=== PATIENT | female | born 1950 | race Caucasian/White ===

== ENCOUNTER 2017-12-02 03:20 | Inpatient (IN) | payer MEDICARE, BC ==
[~2017-12-02] VITALS: Ht 160 cm; Wt 53.1 kg
[2017-12-02 07:00] VITALS: BP 144/92
[2017-12-02] MEDS ORDERED: DULO30CA51 PO (09:25)
[2017-12-02] MEDS ORDERED: ALPR0.5T PO (09:25)
[2017-12-02] MEDS ORDERED: TRAZ-214 PO (09:25)
[2017-12-02] MEDS ORDERED: ACETAMINOPHEN 325 MG TABLET PO PRN (09:30)
[2017-12-02] MEDS ORDERED: MAGNESIUM HYDROXIDE 30 ML UDC PO PRN (09:30)
[2017-12-02] MEDS ORDERED: MAG HYDROX/AL HYDROX/SIMETH 30 ML UDC PO PRN (09:30)
[2017-12-02] MEDS ORDERED: TEMAZEPAM 7.5 MG CAPSULE PO PRN (09:30)
[2017-12-02] MEDS: VENLAFAXINE XR 75 MG CAP.SR.24H PO SCH (15:45)
[2017-12-02 16:07] VITALS: BP 124/89
[2017-12-02 19:30] VITALS: BP 139/95
--- NOTE | 2017-12-02 19:30 | NUR ---
GPS ADMISSION NOTE, RECEIVED PATIENT FROM [facility]. PATIENT ARRIVED ON THIS UNIT AT 0916 VIA STRETCHER WITH 2 EMT ESCORTS. PATIENT ADMITTED ON A 5150 HOLD FOR DTS. PER HOLD PATIENT WAS A MISSING PERSON IN [facility] AND WAS FOUND BY POLICE IN [facility]. PATIENT STATED, " I DOVE TO [facility] TO WITH MY HORSES. I WAS GOING TO TAKE PILLS AND LIE DOWN WITH HER ANIMALS ". PATIENT UNABLE TO CONTRACT FOR SAFETY AT THIS TIME. THE 5150 WAS REVIEWED AND THE DOCUMENTATION IN THE 5150 HOLD APPEARS TO REFLECT THE PRESENTATION OF THE PATIENT. UPON FACE TO FACE ASSESSMENT PATIENT IS CURRENTLY LYING IN BED AWAKE, HAS NO S/S OR COMPLAINTS OF PAIN. PATIENT IS DISPLAYING NO S/S OF APPARENT DISTRESS. PATIENT BREATHING IS UNLABORED WITH EQUAL RISE AND FALL OF THE CHEST. PATIENT IS ALERT AND ORIENTATED X 3 ON ROOM AIR. PATIENT ASSISTED WITH TURING AND REPOSITIONING Q2HR AND PRN FOR COMFORT AND CIRCULATION. PATIENT HAS NO NEEDS AT THIS TIME. PATIENT IS NOTED TO BEING WITHDRAWN, DEPRESSED, DISHEVELED, DISORGANIZED, COOPERATIVE, AND NEEDS REDIRECTION. PATIENT DENIES SUICIDE IDEATIONS AND HOMICIDAL IDEATIONS AT THIS TIME. PATIENT IS UNDER THE PSYCHIATRIC CARE OF DR. CAMARENA AND THE MEDICAL CARE OF DR SAMPSON. PATIENT BELONGINGS WERE INVENTORIED AND CHECKED FOR CONTRABAND. ALL CONTRABAND REMOVED AND STORED IN PATIENT HALLWAY LOCKER. PATIENT ADVANCED DIRECTIVES PREFERENCE, IMMUNIZATIONS QUESTIONER, NECESSARY PAPERWORK, AND SKIN ASSESSMENT COMPLETED. PATIENT ORIENTATED TO ROOM, FLOOR, AND STAFF WITH ALL QUESTIONS ANSWERED. PATIENT EDUCATED ON THE USE OF THE CALL PARK. PATIENT BED SIDE RAILS ARE UP X 2 FOR SAFETY. PATIENT BED IS LOCKED, LOW AND I WILL CONTINUE TO MONITOR THIS PATIENT Q 15 MIN WITH THE HELP OF STAFF TO MAINTAIN SAFETY.
[2017-12-02] MEDS: TRAZODONE 50 MG TABLET PO SCH ×2 (21:35→22:23)
[2017-12-03 07:24] LABS: CHOLESTEROL 205 mg/dL (<200); HDL CHOLESTEROL 92 mg/dL (40-60); LDL 103 mg/dL (0-99); TRIGLYCERIDES 63 mg/dL (30-150)
[2017-12-03 07:27] LABS: ALBUMIN 3.5 g/dL (3.4-5.0); BILIRUBIN,TOTAL 0.6 mg/dL (0.2-1.0); CALCIUM, SERUM 9.3 mg/dL (8.5-10.1); CREATININE 0.6 mg/dL (0.6-1.3); POTASSIUM 3.2 mmol/L (3.5-5.1); TOTAL PROTEIN, SERUM 6.6 g/dL (6.4-8.2)
[2017-12-03 08:00] VITALS: BP 100/59
[2017-12-03] MEDS: VENLAFAXINE XR 75 MG CAP.SR.24H PO SCH ×2 (08:42→16:18)
[2017-12-03] MEDS ORDERED: ARIPIPRAZOLE 5 MG TABLET PO SCH (09:00)
[2017-12-03 09:29] LABS: BASOPHILS % (AUTO) 0.8 % (0.0-2.0); EOSINOPHILS % (AUTO) 2.9 % (0.0-6.0); HEMATOCRIT 40 % (33-45); HEMOGLOBIN 13.9 g/dL (11.5-14.8); LYMPHOCYTES # (AUTO) 1.6 /CMM (0.8-4.8); MEAN CORPUSCULAR HGB CONC 35 g/dl (31.0-36.0); MEAN CORPUSCULAR VOLUME 94 fL (82-100); MONOCYTES # (AUTO) 0.5 /CMM (0.1-1.30); MONOCYTES % (AUTO) 8.2 % (2.0-12.0); NEUTROPHILS % (AUTO) 63.1 % (43.0-81.0); PLATELET COUNT (AUTO) 244 /CMM (150-450); RDW COEFFICIENT OF VARIATION 13.4 (11.5-15.0); RED BLOOD CELL COUNT(AUTO) 4.29 MIL/uL (4.0-5.2); WHITE BLOOD COUNT (AUTO) 6.4 K/uL (4.3-11.0)
[2017-12-03] MEDS: POTASSIUM CHLORIDE 20 MEQ TAB.PRT.SR PO SCH ×2 (10:51→15:43)
[2017-12-03] MEDS: LORAZEPAM 0.5 MG TABLET PO PRN (15:46)
--- NOTE | 2017-12-03 15:46 | NUR ---
[id number]: GAVE ATIVAN 0.5 MG PO DUE TO SEVERE ANXIETY UPON PT REQUEST AND WILL CONTINUE TO MONITOR FOR EFFECTIVENESS OF MEDICATION
[2017-12-03 15:48] VITALS: BP 163/68
[2017-12-03] MEDS ORDERED: POTASSIUM CHLORIDE 20 MEQ TAB.PRT.SR PO SCH (16:00)
[2017-12-03] MEDS: BENZTROPINE MESYLATE (1 MG) 1 MG TABLET PO SCH (16:17)
[2017-12-03] MEDS: ARIPIPRAZOLE 5 MG TABLET PO SCH (16:17)
[2017-12-03 19:47] VITALS: BP 131/87
[2017-12-03] MEDS: TRAZODONE 50 MG TABLET PO SCH ×2 (21:32→22:42)
[2017-12-03] MEDS ORDERED: ATORVASTATIN 10 MG TABLET PO SCH (22:00)
[2017-12-04 08:00] VITALS: BP 115/79
[2017-12-04 08:15] LABS: CALCIUM, SERUM 9.2 mg/dL (8.5-10.1); CREATININE 0.6 mg/dL (0.6-1.3)
[2017-12-04 08:16] LABS: MAGNESIUM 1.7 mg/dL (1.8-2.4)
[2017-12-04 09:27] LABS: THYROID STIMULATING HORMONE 0.905 uIU/mL (0.358-3.74)
[2017-12-04] MEDS: ARIPIPRAZOLE 5 MG TABLET PO SCH (09:36)
[2017-12-04] MEDS: BENZTROPINE MESYLATE (1 MG) 1 MG TABLET PO SCH (09:36)
[2017-12-04] MEDS: VENLAFAXINE XR 75 MG CAP.SR.24H PO SCH (09:37)
[2017-12-04] MEDS: LORAZEPAM 0.5 MG TABLET PO PRN ×2 (09:47→16:00)
--- NOTE | 2017-12-04 11:34 | NUR ---
Initial Discharge Plan: Pt resides at [address] [facility] [address]; by her self. Pt reports that upon discharge she will be flying straight to [place] to be admitted into [facility] in [place]. Pt reports having family (i.e. sisters and brothers) fly out to [place], currently in order to support her through this transition. SW contacted pts sister, María Elena Barajas who attested to pts discharge plan. SW will follow up with pt, family and treatment team to ensure pt is safely and appropriately discharged.
--- NOTE | 2017-12-04 12:05 | NUR ---
SW spoke to pts sister, María Elena Barajas for discharge planning purposes . Per pts sister SW faxed clinical inquiry (face sheet, H&P, P&P, and med list) to [facility] in [facility] (fax# [phone]). In addition, Sw as informed by María Elena that in the event that pt was not admitted To [facility] upon arrival pt would wait for admittance at her brother's home (Noel Barajas, [address] [address]; [phone]). SW was also informed that pt would be "watched" by family in the event she had to wait while pending admission to hospital.
--- NOTE | 2017-12-04 12:11 | NUR ---
Discharge Plan: Patient will discharge home, [address] [place] [address] via private transportation at 4:00 pm. Pts sister María Elena Barajas, will pick pt up. Pt will then travel to [facility] in [place] (fax # [phone]) for admittance. Psychiatrist: Dr. Rex Garg, [address], [place] [address]; Firefighter: Dr. Rodo Bernardo; [address], [facility] [address]; . Pt was provided the following referrals to substance abuse facilities in [place]: [facility], [address] [place] [id number]; , [facility], [address] [place] [address]; and [facility] [address] [place] [address]; . Pt agreed to follow through with receiving help for her alcohol addiction.
[2017-12-04] MEDS ORDERED: MAGNESIUM OXIDE 400 MG TABLET PO ONE (14:00)
[2017-12-04 16:00] VITALS: BP 121/69
--- NOTE | 2017-12-04 16:30 | NUR ---
RECEIVED PT. ALERT AND ORIENTED X3.TAKES MEDS,MEDICATED X [address]MED [address] CAMARENA IN ORDERS FOR DISCHARGE TODAY.GIVEN ALL INSTRUCTIONS WELL RXS,INSTRUCTIONS WELL GIVEN TO PT,S SISTER.ALL BELONGINGS GIVEN TO PT. AND SIGNED FOR.PT. DENIES SUICIDE IDEATION AND HOMICIDAL IDEATION.DC,D TO CAR ESCORTED WALKING WITH SISTERS AND ELECTROCARDIOGRAPH TECHNICIAN.
== END 2017-12-04 16:15 | disposition home or self-care (01) | DRG 885 ==
LOC: GPS 08:15
PROVIDERS: ADMIT Psychiatry & Neurology Psychosomatic Medicine; ATTEND Nurse Practitioner Acute Care
DX: F33.2 Major depressive disorder, recurrent severe without psychotic features (principal); E87.8 Other disorders of electrolyte and fluid balance, not elsewhere classified; R45.851 Suicidal ideations; E78.5 Hyperlipidemia, unspecified; E87.6 Hypokalemia; F41.0 Panic disorder [episodic paroxysmal anxiety]; F10.20 Alcohol dependence, uncomplicated; F39 Unspecified mood [affective] disorder
CPT/HCPCS: 36415; 80048-TC; 80053-TC; 80061-TC; 82746; 83540-TC; 83735-TC; 84100-TC; 84443-TC; 85025-TC; 87081-TC

== ENCOUNTER 2019-09-20 15:52 | Inpatient (IN) | payer MEDICARE, BC ==
[~2019-09-20] VITALS: Ht 160 cm; Wt 55.3 kg
[~2019-09-20 15:52] MED LIST: ALPR0.5T PO; DULO30CA52 PO; TRAZ-257 PO
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
[2019-09-20 20:23] VITALS: BP 131/83
[2019-09-20] MEDS ORDERED: BLOOD SUGAR DIAGNOSTIC 1 EACH STRIP IN ONE (20:30)
[2019-09-20] MEDS ORDERED: ACETAMINOPHEN 325 MG TABLET PO PRN (20:30)
[2019-09-20] MEDS ORDERED: LORAZEPAM 0.5 MG TABLET PO PRN (20:30)
[2019-09-20] MEDS ORDERED: MAG HYDROX/AL HYDROX/SIMETH 30 ML UDC PO PRN (20:30)
[2019-09-20] MEDS ORDERED: MAGNESIUM HYDROXIDE 30 ML UDC PO PRN (20:30)
--- NOTE | 2019-09-20 20:30 | NUR ---
GPS RN NOTE: AGITATION PATIENT STATED," I AM HUNGRY." SNACKS & JUICE WAS OFFERED TO HER, WHILE EATING, PATIENT STARTED GAGGING ON SNACK & STARTED SPITTING IT OUT. VOMIT BAG WAS GIVEN TO THE PAT. UNDER SUPERVISION. NO VOMITING EPISODE NOTED. PT. STARTED LAUGHING & STATED," I AM DOING IT INTENTIONALLY." PT. ATTEMPTED TO THROW VOMIT BAG FULL OF CHEWED SNACK TOWARDS NURSE ASSISTING HER. NON REDIRECTABLE AT THIS TIME. PT. STATED, " I AM GOING TO GIVE YOU ALL HARD TIME TONIGHT & SHE LAUGHS." GAVE SPACE TO THE PATIENT TO RELAX & CALM DOWN UNDER CLOSE SUPERVISION.
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
[2019-09-20] MEDS ORDERED: QUET25TA PO (21:06)
[2019-09-20] MEDS ORDERED: THIAMINE PO (21:06)
[2019-09-20] MEDS ORDERED: FOLIC ACID PO (21:06)
[2019-09-20] MEDS ORDERED: LORA-259 PO (21:06)
[2019-09-20] MEDS ORDERED: ONDA4TAB5 PO (21:06)
[2019-09-20] MEDS ORDERED: MIRT15TA PO (21:06)
[2019-09-20] MEDS ORDERED: CHLO25CA22 PO (21:06)
[2019-09-20] MEDS ORDERED: FLUO20CA36 PO (21:06)
[2019-09-20] MEDS ORDERED: TRAM50TA2 PO (21:06)
--- NOTE | 2019-09-20 21:12 | NUR ---
REFUSED BLOOD SUGAR LEVEL CHECK PATIENT IS VERY ANXIOUS, RESTLESS, REFUSING CARE, MEDS, BLOOD SUGAR CHECK, STATED, I WILL REFUSE EVERYTHING, I WILL BE UP ALL NIGHT & MAKING LOUD NOISE & THAT'S WHAT MY PLAN IS FOR TONIGHT." DESPITE OF RISKS & BENEFITS EXPLANATIONS, PT. CONTINUED TO REFUSE BLOOD SUGAR LEVEL TO BE CHECKED.
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
--- NOTE | 2019-09-20 22:43 | NUR ---
GPS RN NOTE: BEHAVIORAL PATIENT IS UP IN A SUSANNE CHAIR, ON 1:1 SUPERVISION FOR BEHAVIORAL EPISODES. PT. IS VERY CONFUSED, DISORIENTED, DISORGANIZED, REFUSING TO TAKE ANY MEDICINES. KEEP CALLING FOR "VELIA", PARANOID, DELUSIONAL. INTERMITTENTLY SCREAMS," HELP, HELP, I AM BEING RAPED, VELIA YOU ARE DISGUSTING, YOU ARE A FOOL." NON REDIRACTABLE AT THIS TIME. HAVING BEHAVIORAL EPISODES INTERMITTENTLY SINCE ADMITTED TO GPS UNIT. WILL CONTINUE TO MONITOR CLOSELY FOR SAFETY & BEHAVIOR.
--- NOTE | 2019-09-20 23:02 | NUR ---
MD NOTIFIED CALLED DR GALLOWAY & REQUESTED TO HAVE MED RECON DONE. MD SAID HE WILL DO THE MED RECON. INFORMED MD THAT PATIENT HAS H/O OF ALCOHOL ABUSE BUT HER ALCOHOL SERUM LEVEL IS <5, PER [facility] LAB RESULTS & WAS ON LIBRIUM PER OUTPATIENT MEDICATION LIST SINCE PATIENT IS UNABLE TO PROVIDE ANY HISTORY DUE TO AGITATION, CONFUSION & PARANOID. MADE AWARE.
[2019-09-21] MEDS: TEMAZEPAM 7.5 MG CAPSULE PO PRN ×2 (00:50→21:44)
--- NOTE | 2019-09-21 00:54 | NUR ---
PRN RESTORIL GIVEN PATIENT IS UNABLE TO SLEEP, RESTLESS, ANXIOUS, OFFERED ATIVAN OR RESTORIL BUT PATIENT AGREED TO TAKE RESTORIL ONLY AT THIS TIME, REFUSED TO TAKE ATIVAN. PRN RESTORIL 7.5 MG 1 CAP PO GIVEN. WILL REASSESS FOR EFFECTIVENESS.
--- NOTE | 2019-09-21 03:10 | NUR ---
GPS RN NOTE RESTORIL WAS INEFFECTIVE FOR THE PATIENT, SHE IS UNABLE TO SLEEP, OFFERED ATIVAN BUT PATIENT CONTINUED TO REFUSE & WAS PARANOID/SUSPICIOUS. PATIENT WAS MAKING SEXUALLY INAPPROPRIATE COMMENTS TOWARDS STAFF, PT. CALMS DOWN, WHEN SPACE GIVEN. HAD INTERMITTENT BEHAVIORAL EPISODES DURING THE SHIFT. CONTINUED 1:1 SUPERVISION & KEPT REDIRECTING THE PT. WHILE HAVING BEHAVIORAL EPISODES & PT. WAS DISTRACTED AT TIMES.
--- NOTE | 2019-09-21 06:10 | NUR ---
GPS RN NOTE CHECKED WITH THE PATIENT THAT WHO SHE WOULD LIKE TO INFORM ABOUT HER ADMISSION AT [facility], [facility] UNIT. PATIENT STATED," CALL LEONARD, HE IS MY FIANCE & MY FRIEND." INFORMED PATIENT THAT CHARLES FETTING IS ALSO LISTED ON THE FACE SHEET BUT PATIENT STATED," DO NOT GET CHARLES INVOLVED, I DON'T WANT YOU TO CALL HIM." PHONE NUMBER PROVIDED FOR LEONARD IS NOT REACHABLE & PATIENT MADE AWARE BUT SHE STILL DOES NOT WANT CHARLES TO BE INFORMED. CHARGE NURSE MADE AWARE.
--- NOTE | 2019-09-21 06:16 | NUR ---
REFUSED AM LABS PATIENT REFUSED AM LABS DESPITE OF RISKS & BENEFITS EXPLANATIONS.
--- NOTE | 2019-09-21 07:22 | NUR ---
GPS RN NOTE REPORT GIVEN TO AM RN & INFORMED ABOUT PATIENT'S STATEMENT NOT TO CALL CHARLES, FETTING, ONLY CALL LEONARD BUT PHONE NUMBER FOR LEONARD IS NOT REACHABLE.
[2019-09-21 08:00] VITALS: BP 123/70
[2019-09-21] MEDS: MULTIVITAMINS,THERAGRAN 1 UDTAB TABLET PO SCH (08:12)
[2019-09-21] MEDS: THIAMINE HCL 100 MG TABLET PO SCH (08:12)
[2019-09-21] MEDS: LORAZEPAM 1 MG TABLET PO PRN ×2 (08:12→16:56)
[2019-09-21] MEDS: FOLIC ACID 1 MG TABLET PO SCH (08:12)
--- NOTE | 2019-09-21 08:12 | NUR ---
RN NOTE: PT IN HALLWAY SCREAMING AND PARANOID. MEDICATED WITH ATIVAN 2MG PO PRN
--- NOTE | 2019-09-21 12:47 | NUR ---
RN NOTE: PT C/O LOWER BACK PAIN. MEDICATED WITH TYLENOL 650MG PO
[2019-09-21 16:00] VITALS: BP 113/72
--- NOTE | 2019-09-21 16:59 | NUR ---
RN NOTE: PT AGITATED AND VERBALLY AGRESSIVE. MEDICATED WITH ATIVAN 2MG PO
[2019-09-21 21:07] VITALS: BP 99/65
[2019-09-22 08:00] VITALS: BP 112/68
[2019-09-22] MEDS: MULTIVITAMINS,THERAGRAN 1 UDTAB TABLET PO SCH (09:22)
[2019-09-22] MEDS: FOLIC ACID 1 MG TABLET PO SCH (09:22)
[2019-09-22] MEDS: THIAMINE HCL 100 MG TABLET PO SCH (09:22)
[2019-09-22] MEDS: LORAZEPAM 1 MG TABLET PO PRN (09:28)
--- NOTE | 2019-09-22 09:34 | NUR ---
GPS RN -NOTES NOTED PATIENT WITH SCREAMING AND YELLING DEMANDING ,NEEDY AND ARGUMENTATIVE WITH STAFF.ALL NEEDS ATTENDED. REDIRECTED AND OFFERED ATIVAN AND AGREED. ATIVAN 2MG P.O GIVEN PRN ORDER. WILL CONT. MONITORING FOR SAFETY AND BEHAVIOR.
--- NOTE | 2019-09-22 10:00 | NUR ---
GPS/RN-NOTES PATIENT IN THE DAY ROOM,CALM AT THIS TIME.NO ACUTE DISTRESS NOTED.
--- NOTE | 2019-09-22 11:31 | NUR ---
Family Contact: SW called the pts brother, Noel ([phone]), and left a voicemail that informed him that the pt is in the hospital and that the SW would like to discuss the pts treatment plan and discharge plan. Addendum: 09/22/19 at 1134 by GARCIA SANCHEZ Pt did not give permission to speak to the pts brother but due to the pt being on a hold for grave disability, the SW was able to make contact.
[2019-09-22] MEDS: ARIPIPRAZOLE 5 MG TABLET PO SCH ×2 (12:51→16:08)
--- NOTE | 2019-09-22 13:49 | NUR ---
Family Contact: Pts brother, Noel ([phone]), called the SW and stated that the pt was living at [facility] and he stated that he believes that the pt should be in a supervised facility and should not be living on her own.
--- NOTE | 2019-09-22 13:49 | NUR ---
Initial Discharge Plan: Pt currently resides at her condo where she lives alone located at [address] [place] [id number]; ([phone]). Per pt, she would like to return to her home. LAURA will work with the pt and the pts MD regarding appropriate discharge planning. SW will form a safe and proper discharge.
--- NOTE | 2019-09-22 14:20 | NUR ---
Substance Abuse Intervention: SW was unable to conduct the substance abuse intervention with the pt due to her aggressive behavior both physically and verbally. SW will make another attempt.
[2019-09-22 16:00] VITALS: BP 105/68
--- NOTE | 2019-09-22 16:32 | NUR ---
Group Note: SW encouraged pt to attend group therapy on 09/22/19 at 2pm discussing aggressive behaviors and triggers. Pt stated, "get the fuck away from me. Why would I do that? You cannot force me." Pt appeared to be verbally and physically aggressive and SW deemed her inappropriate for group.
[2019-09-22] MEDS: TEMAZEPAM 7.5 MG CAPSULE PO PRN (22:24)
[2019-09-23 08:00] VITALS: BP 95/68
[2019-09-23] MEDS: ARIPIPRAZOLE 5 MG TABLET PO SCH ×5 (09:00→21:14)
[2019-09-23] MEDS: FOLIC ACID 1 MG TABLET PO SCH (09:00)
[2019-09-23] MEDS: THIAMINE HCL 100 MG TABLET PO SCH (09:00)
[2019-09-23] MEDS: MULTIVITAMINS,THERAGRAN 1 UDTAB TABLET PO SCH (09:00)
--- NOTE | 2019-09-23 10:19 | NUR ---
WOUND CARE CONSULT; UNABLE TO TO WOUND CARE ASSESSMENT,PATIENT STRONGLY REFUSED TO BE TOUCH DESPITE EXPLANATIONS, PATIENT AGITATED AND NOT COOPERATIVE , CHARGE NURSE AND PRIMARY CARE NURSE NOTIFIED , WILL ATTEMPT WHEN PATIENT STATUS PERMITS
--- NOTE | 2019-09-23 14:21 | NUR ---
Group Note: SW invited the patient to attend group therapy on 09/23/2019 1 pm to discuss "what changes they would like to see in their lives as a result of their stay in [facility]". SW assessed the patient's ability to participate in therapy. The pt. is not appropriate for group therapy as the pt. is verbally aggressive.
[2019-09-23 16:00] VITALS: BP 116/95
[2019-09-23] MEDS: OXCARBAZEPINE 150 MG TABLET PO SCH (18:17)
[2019-09-23 20:56] VITALS: BP 112/74
[2019-09-23] MEDS: TEMAZEPAM 7.5 MG CAPSULE PO PRN (22:54)
--- NOTE | 2019-09-23 22:55 | NUR ---
GPS RN NOTES: PT C/O UNABLE TO SLEEP. PT STATED, " I CANT SLEEP." VITALS CHECKED WNL. OFFERED RESTORL 7.5 MG PO PRN ORDERED. PT AGREED AND TOLERATED MEDICATION WELL CONTINUE TO MONITOR .
[2019-09-24] MEDS: ARIPIPRAZOLE 5 MG TABLET PO SCH ×3 (08:44→22:06)
[2019-09-24] MEDS: MULTIVITAMINS,THERAGRAN 1 UDTAB TABLET PO SCH (08:44)
[2019-09-24] MEDS: OXCARBAZEPINE 150 MG TABLET PO SCH ×3 (08:45→16:13)
[2019-09-24] MEDS: LORAZEPAM 1 MG TABLET PO PRN ×2 (08:45→20:07)
[2019-09-24] MEDS: THIAMINE HCL 100 MG TABLET PO SCH (08:45)
[2019-09-24] MEDS: FOLIC ACID 1 MG TABLET PO SCH (08:45)
[2019-09-24 16:00] VITALS: BP 106/73
[2019-09-24 20:00] VITALS: BP 103/58
--- NOTE | 2019-09-24 20:09 | NUR ---
GPS RN NOTE: AGITATION PATIENT IS VERY ANXIOUS, RESTLESS, BANGING ON THE SUSANNE CHAIR TRAY, YELLS/SCREAMS. PRN ATIVAN 2 MG PO GIVEN. WILL CONTINUE TO MONITOR FOR SAFETY & BEHAVIOR.
[2019-09-24 20:22] VITALS: BP 103/58
[2019-09-25 08:00] VITALS: BP 110/57
[2019-09-25] MEDS: THIAMINE HCL 100 MG TABLET PO SCH (08:21)
[2019-09-25] MEDS: ARIPIPRAZOLE 5 MG TABLET PO SCH ×3 (08:22→21:52)
[2019-09-25] MEDS: MULTIVITAMINS,THERAGRAN 1 UDTAB TABLET PO SCH (08:22)
[2019-09-25] MEDS: OXCARBAZEPINE 150 MG TABLET PO SCH ×3 (08:22→16:43)
[2019-09-25] MEDS: FOLIC ACID 1 MG TABLET PO SCH (08:22)
[2019-09-25] MEDS: LORAZEPAM 1 MG TABLET PO PRN ×2 (09:18→21:00)
--- NOTE | 2019-09-25 09:19 | NUR ---
RN NOTE-AGITATION/ PT SCREAMING AND YELLING. UNABLE TO CONTROL SELF. ATIVAN 2 MG GIVEN.
--- NOTE | 2019-09-25 09:38 | NUR ---
RN NOTE-AGITATION/ PT SPIT PILLS ONTO FLOOR AFTER THIS RN LEFT. HOT MILL OBSERVER NOTED PT HIDING BEHAVIOR. WILL NOTIFY MD IF BEHAVIOR CONTINUES TO ESCALATE.
--- NOTE | 2019-09-25 10:44 | NUR ---
Probable Cause (PC) Hearing: SW called the pts brother, Noel ([phone]), and left a voicemail that stated that the pt is going to be having a hearing today and explained what that entails. SW also informed him that the pts MD is considering SNF placement for the pt and that the SW would also like to speak to him regarding that aspect.
--- NOTE | 2019-09-25 15:49 | NUR ---
GROUP THERAPY: SW encouraged pt to attend group therapy on this present day discussing "suicidal ideation." Pt is not appropriate for group at this time as she is verbally aggressive and uses derogatory language. Pt refused to speak to SW and asked her to leave her room. SW will encourage pt to regulate mood via individual/group therapy and be complaint with medications.
[2019-09-25 16:00] VITALS: BP 127/78
--- NOTE | 2019-09-25 20:17 | NUR ---
PT RECEIVED FR THE MORNING SHIFT VERY ANXIOUS AND RESTLESS, PT WAS SEATED IN THE SUSANNE CHAIR FOR SAFETY, CONTINUE TO MONITOR PT FOR MOOD AND BEHAVIOR, CK PT Q15 MIN.
[2019-09-25 20:45] VITALS: BP 121/79
--- NOTE | 2019-09-25 21:00 | NUR ---
GPS POLISHER AND BUFFER NOTES: ANXIETY PT IS ON THE SUSANNE CHAIR, STILL ANXIOUS AND VERY RESTLESS, GIVEN HER PRN MED ATIVAN 2MG AND CONTINUE TO MONITOR PT.
[2019-09-25] MEDS ORDERED: ARIPIPRAZOLE 5 MG TABLET ONE (21:45)
--- NOTE | 2019-09-25 22:00 | NUR ---
GPS NOTES : INSOMNIA PT STILL WIDE AWAKE AND RESTLESS, GIVEN RESTORIL 7.5 MG, SO PT WILL SLEEP AND CALM DOWN, CONTINUE TO MONITOR PT.
[2019-09-25] MEDS: TEMAZEPAM 7.5 MG CAPSULE PO PRN (22:19)
[2019-09-26 08:00] VITALS: BP 115/74
[2019-09-26] MEDS: OXCARBAZEPINE 150 MG TABLET PO SCH ×3 (09:06→17:02)
[2019-09-26] MEDS: MULTIVITAMINS,THERAGRAN 1 UDTAB TABLET PO SCH (09:06)
[2019-09-26] MEDS: FOLIC ACID 1 MG TABLET PO SCH (09:07)
[2019-09-26] MEDS: THIAMINE HCL 100 MG TABLET PO SCH (09:07)
[2019-09-26] MEDS: ARIPIPRAZOLE 5 MG TABLET PO SCH ×3 (09:07→22:15)
[2019-09-26 16:00] VITALS: BP 122/56
[2019-09-26 21:04] VITALS: BP 115/78
[2019-09-27 08:00] VITALS: BP 130/74
[2019-09-27] MEDS: MULTIVITAMINS,THERAGRAN 1 UDTAB TABLET PO SCH (08:45)
[2019-09-27] MEDS: FOLIC ACID 1 MG TABLET PO SCH (08:45)
[2019-09-27] MEDS: THIAMINE HCL 100 MG TABLET PO SCH (08:45)
[2019-09-27] MEDS: OXCARBAZEPINE 150 MG TABLET PO SCH ×3 (08:45→17:13)
[2019-09-27] MEDS: ARIPIPRAZOLE 5 MG TABLET PO SCH ×3 (08:47→21:51)
[2019-09-27 16:00] VITALS: BP 108/69
[2019-09-27 20:03] VITALS: BP 135/53
--- NOTE | 2019-09-28 06:21 | NUR ---
rn gps notes patient refused lab draw at this time, states "LATER" DESPITE EDUCATION LAB WILL ATTEMPT AT A LATER TIME
[2019-09-28 08:00] VITALS: BP 101/58
[2019-09-28] MEDS: MULTIVITAMINS,THERAGRAN 1 UDTAB TABLET PO SCH (08:31)
[2019-09-28] MEDS: ARIPIPRAZOLE 5 MG TABLET PO SCH ×3 (08:31→22:05)
[2019-09-28] MEDS: THIAMINE HCL 100 MG TABLET PO SCH (08:31)
[2019-09-28] MEDS: OXCARBAZEPINE 150 MG TABLET PO SCH ×3 (08:31→17:16)
[2019-09-28] MEDS: FOLIC ACID 1 MG TABLET PO SCH (08:31)
--- NOTE | 2019-09-28 09:53 | NUR ---
Family Contact: Pts brother, Noel ([phone]), called the SW and stated that he was unable to call the SW back on Saturday but wanted an update on the hearings. SW informed him that the pt remained on her hold from the hearing results. Pts brother then inquired about the pts ability to be placed in an Assisted Living. SW stated that the plan at this time is to discharge the pt to a SNF and then expressed that from there she could be placed in an Assisted Living. SW stated that it would be difficult to place the pt in an Assisted Living with her current behaviors. Pts brother then stated that he would like the MD to speak to his brother, Jamar ([phone]), who is also a physician.
--- NOTE | 2019-09-28 11:25 | NUR ---
Family Contact: SW called the pts brother, Jamar ([phone]), and left a voicemail stating that the SW would like to discuss the pts treatment and discharge plan.
--- NOTE | 2019-09-28 14:27 | NUR ---
SNF Referral: LAURA faxed a referral to [facility] with attn to Milagros to the fax number: [phone].
--- NOTE | 2019-09-28 15:20 | NUR ---
SNF Contact: Zhane Colon ([phone]) from [facility] called the SW and stated that the pt was accepted to their facility.
[2019-09-28 16:00] VITALS: BP 109/62
[2019-09-28 20:44] VITALS: BP 110/76
[2019-09-28 20:48] LABS: BASOPHILS # (AUTO) 0.1 /CMM (0.0-0.2); BASOPHILS % (AUTO) 1.5 % (0.0-2.0); EOSINOPHILS % (AUTO) 3.7 % (0.0-6.0); HEMATOCRIT 41 % (33-45); HEMOGLOBIN 13.9 g/dL (11.5-14.8); LYMPHOCYTES # (AUTO) 1.7 /CMM (0.8-4.8); LYMPHOCYTES % (AUTO) 20.7 % (20.0-44.0); MEAN CORPUSCULAR HGB CONC 34 g/dl (31.0-36.0); MEAN CORPUSCULAR VOLUME 90 fL (82-100); MONOCYTES # (AUTO) 0.8 /CMM (0.1-1.30); MONOCYTES % (AUTO) 9.9 % (2.0-12.0); NEUTROPHILS # (AUTO) 5.2 /CMM (1.8-8.9); NEUTROPHILS % (AUTO) 64.2 % (43.0-81.0); PLATELET COUNT (AUTO) 274 /CMM (150-450); RED BLOOD CELL COUNT(AUTO) 4.53 MIL/uL (4.0-5.2)
[2019-09-28 21:23] LABS: ALBUMIN 3.5 g/dL (3.4-5.0); BILIRUBIN,TOTAL 0.2 mg/dL (0.2-1.0); CALCIUM, SERUM 9.5 mg/dL (8.5-10.1); CREATININE 0.7 mg/dL (0.6-1.3); POTASSIUM 3.7 mmol/L (3.5-5.1); TOTAL PROTEIN, SERUM 7.3 g/dL (6.4-8.2)
[2019-09-28] MEDS: TEMAZEPAM 7.5 MG CAPSULE PO PRN (22:58)
[2019-09-29 08:00] VITALS: BP 105/74
[2019-09-29] MEDS: THIAMINE HCL 100 MG TABLET PO SCH (08:41)
[2019-09-29] MEDS: MULTIVITAMINS,THERAGRAN 1 UDTAB TABLET PO SCH (08:41)
[2019-09-29] MEDS: FOLIC ACID 1 MG TABLET PO SCH (08:41)
[2019-09-29] MEDS: ARIPIPRAZOLE 5 MG TABLET PO SCH ×3 (08:45→22:03)
[2019-09-29] MEDS: OXCARBAZEPINE 150 MG TABLET PO SCH ×4 (09:54→17:00)
--- NOTE | 2019-09-29 14:45 | NUR ---
Family Contact: Pts brother, Noel ([phone]), called the SW and informed her that the family is considering having the pt move to [place] once she is discharged from the hospital. He requested that the SW work with the facilities in [place] to secure placement in a SNF. SW stated that she will send over whatever paperwork they need but that the MD is suggesting that the pt be transferred somewhere here in [place] and when the pt is stable that she can be moved to [place].
--- NOTE | 2019-09-29 15:15 | NUR ---
Group Note: SW encouraged pt to attend group therapy on 09/29/19 at 2pm discussing discharge planning. Pt is not appropriate for group at this time as she is verbally aggressive and uses derogatory language. Pt presented in a gerichair in the activities room. SW will encourage pt to regulate mood via individual/group therapy and be complaint with medications.
[2019-09-29 16:00] VITALS: BP 116/67
--- NOTE | 2019-09-29 17:14 | NUR ---
RN NOTE: PT REFUSED 17:00 TRILEPTAL. EDUCATED PT RE IMPORTANCE OF MEDICATION COMPLIANCE. PT CONT'D TO REFUSE PO MED X 3
[2019-09-29 20:06] VITALS: BP 119/68
[2019-09-29] MEDS: TEMAZEPAM 7.5 MG CAPSULE PO PRN (22:41)
[2019-09-30 08:00] VITALS: BP 109/69
[2019-09-30] MEDS: ARIPIPRAZOLE 5 MG TABLET PO SCH ×3 (08:00→21:28)
[2019-09-30] MEDS: OXCARBAZEPINE 150 MG TABLET PO SCH ×3 (09:00→16:13)
[2019-09-30] MEDS: THIAMINE HCL 100 MG TABLET PO SCH (09:00)
[2019-09-30] MEDS: FOLIC ACID 1 MG TABLET PO SCH (09:00)
[2019-09-30] MEDS: MULTIVITAMINS,THERAGRAN 1 UDTAB TABLET PO SCH (09:00)
--- NOTE | 2019-09-30 10:14 | NUR ---
GPS RN REFUSAL NOTE: RECEIVED PT. IN HALLWAY IN CHAIR, CALM, CONFUSED AT THIS TIME. ALERT,ORIENTED X1, NO SIGNS OF DISTRESS, NO PAIN OR DISCOMFORT, PT. REFUSED AM MEDS, OFFERED X 3 EXPLAINED RISKS AND BENEFITS AND STILL REFUSED. WILL CONTINUE TO MONITOR Q 15 MIN FOR SAFETY AND BEHAVIOR
--- NOTE | 2019-09-30 13:33 | NUR ---
Family Contact: Pts brother, Jamar ([phone]), called the SW and the SW discussed the pts discharge plan. SW stated that the pt was accepted to a [facility] facility called [facility] and the SW stated that if the pt is discharged to [place] in this condition she will not do well on the flight there with her aggressive behavior. Pts brother agreed with the SW and stated that he accepts the SNF placement in [place]. SW stated that she will keep him informed on the pts discharge plan.
--- NOTE | 2019-09-30 15:24 | NUR ---
GROUP NOTE: Pt was present in group on this day discussing "discharge plan." S: "I'm an inmate here and I like it, I'm going back home to clean my house because I don't think my maids are there cleaning, oh I mean house bit grinder." O: Pts thought process is disorganized and disoriented. Pt would interject when others where talking but then would ask for permission to talk. A: Pt has not gained insight into her mental illness due to pts disorganized and paranoid thought process P: SW will continue to assess pts ability to participate in group milieu.
[2019-09-30 16:00] VITALS: BP 108/73
[2019-09-30 20:16] VITALS: BP 123/73
[2019-09-30] MEDS: TEMAZEPAM 7.5 MG CAPSULE PO PRN (23:07)
--- NOTE | 2019-09-30 23:14 | NUR ---
GPS NOTES : INSOMNIA UPON DOING ROUNDS. PT STILL WIDE AWAKE AND RESTLESS, GIVEN RESTORIL 7.5 MG. PT TOLERATED MEDICATION WELL. CONTINUE TO MONITOR PT.
[2019-10-01] MEDS: LORAZEPAM 1 MG TABLET PO PRN (04:20)
--- NOTE | 2019-10-01 04:21 | NUR ---
GPS R N NOTES: C/O OF FEELING ANXIOUS PT C/O PF FEELING ANXIOUS. PT STATED, " I DONT KNOW WHAT IM FEELING BUT I THINK IM ANXIOUS." VITALS CHECKED WNL. OFFERED ATIVAN 2MG PO PRN ORDERED. PT AGREED AND TOLERATED MEDICATION WELL. CONTINUE TO MONITOR.
--- NOTE | 2019-10-01 07:35 | NUR ---
RN NOTE: RECEIVED PT LYING IN BED. NO ACUTE DISTRESS NOTED.VSS, AFEBRILE. PT A+OX1, EASILY AGITATED AND RESTLESS. PT COMPLIANT WITH MEDICATION ADMINISTRATION WITH WHOLE PILLS WITH ENOUCRAGEMENT. PT DENIES SI/HI AT PRESENT TIME. PT ISOLATIVE AND WITHDRAWN AT PRESENT TIME. PT ABLE TO MAKE BASIC NEEDS KNOWN. PT VERBALLY AGRESSIVE WITH STAFF. NEEDS FREQUENT REORIENTATION. WILL CONT TO MONITOR PT PER GPS PROTOCOL
[2019-10-01 08:00] VITALS: BP 129/69
[2019-10-01] MEDS: FOLIC ACID 1 MG TABLET PO SCH (08:15)
[2019-10-01] MEDS: MULTIVITAMINS,THERAGRAN 1 UDTAB TABLET PO SCH (08:15)
[2019-10-01] MEDS: THIAMINE HCL 100 MG TABLET PO SCH (08:15)
[2019-10-01] MEDS: OXCARBAZEPINE 150 MG TABLET PO SCH ×3 (08:15→16:20)
[2019-10-01] MEDS: ARIPIPRAZOLE 5 MG TABLET PO SCH ×3 (08:15→21:12)
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
--- NOTE | 2019-10-01 15:10 | NUR ---
Group Note: SW encouraged pt to attend group therapy on 10/01/19 at 2pm discussing social supports. Pt is not appropriate for group at this time as she is verbally aggressive and uses derogatory language. Pt presented in a gerichair in the activities room. Pt stated, "I do not want to keep sitting, I want to be walked right now." SW will encourage pt to regulate mood via individual/group therapy and be complaint with medications.
[2019-10-01 16:00] VITALS: BP 113/75
[2019-10-01 20:00] VITALS: BP 110/71
[2019-10-01] MEDS: TEMAZEPAM 7.5 MG CAPSULE PO PRN (23:04)
--- NOTE | 2019-10-01 23:05 | NUR ---
GPS RN NOTES : INSOMNIA UPON DOING ROUNDS. PT STILL WIDE AWAKE AND RESTLESS, GIVEN RESTORIL 7.5 MG. PT TOLERATED MEDICATION WELL. CONTINUE TO MONITOR PT.
[2019-10-02 08:00] VITALS: BP 100/60
[2019-10-02] MEDS: MULTIVITAMINS,THERAGRAN 1 UDTAB TABLET PO SCH (08:55)
[2019-10-02] MEDS: FOLIC ACID 1 MG TABLET PO SCH (08:55)
[2019-10-02] MEDS: ARIPIPRAZOLE 5 MG TABLET PO SCH ×3 (08:55→22:07)
[2019-10-02] MEDS: OXCARBAZEPINE 150 MG TABLET PO SCH ×3 (08:55→16:45)
[2019-10-02] MEDS: THIAMINE HCL 100 MG TABLET PO SCH (08:55)
--- NOTE | 2019-10-02 09:51 | NUR ---
GPS RN OPENING NOTE: RECEIVED PT LYING IN BED, ASLEEP. NO ACUTE DISTRESS NOTED.VSS, AFEBRILE. PT AOX1, EASILY AGITATED AND RESTLESS. PT COMPLIANT WITH MEDICATION ADMINISTRATION.AMBULATED WITH WALKER AND STANDBY ASSISTANCE DOWN THE HALLWAY. PT DENIES SI/HI AT PRESENT TIME WELL DENIES VAH. PT ABLE TO MAKE BASIC NEEDS KNOWN. PT VERBALLY AGGRESSIVE WITH STAFF. NEEDS FREQUENT REORIENTATION. WILL CONT TO MONITOR PT PER [facility] PROTOCOL
--- NOTE | 2019-10-02 13:35 | NUR ---
Family Contact: SW called the pts brother, Noel ([phone]), and left a voicemail stating that the pt is going to be discharged on Saturday.
[2019-10-02 16:00] VITALS: BP 109/61
--- NOTE | 2019-10-02 19:20 | NUR ---
GPS RN OPENING NOTE: RECEIVED PT UP IN SUSANNE CHAIR. A & O X 1, CONFUSED, HYPERVERBAL, PARANOID, ANXIOUS/RESTLESS AT TIMES. NO ACUTE DISTRESS NOTED. VSS. EASILY AGITATED. PT COMPLIANT WITH MEDICATION ADMINISTRATION. PT DENIES SI/HI AT PRESENT TIME WELL DENIES VAH. PT ABLE TO MAKE BASIC NEEDS KNOWN. NEEDS FREQUENT REORIENTATION. BED ALARM WILL BE ON ONCE PT. IS IN BED. ENVIRONMENTAL SAFETY CHECKS DONE. WILL CONT TO MONITOR PT Q15 MINS. FOR SAFETY & BEHAVIOR.
[2019-10-02 20:36] VITALS: BP 117/78
[2019-10-02] MEDS: TEMAZEPAM 7.5 MG CAPSULE PO PRN (23:09)
--- NOTE | 2019-10-02 23:10 | NUR ---
PRN RESTORIL GIVEN: INSOMNIA PATIENT IS UNABLE TO SLEEP, RESTLESS & ANXIOUS. PRN RESTORIL 7.5 MG 1 CAP PO GIVEN. WILL REASSESS FOR EFFECTIVENESS.
[2019-10-03] MEDS: ARIPIPRAZOLE 5 MG TABLET PO SCH ×3 (07:49→22:16)
[2019-10-03 08:00] VITALS: BP 115/70
[2019-10-03] MEDS: THIAMINE HCL 100 MG TABLET PO SCH (08:15)
[2019-10-03] MEDS: OXCARBAZEPINE 150 MG TABLET PO SCH ×3 (08:15→17:12)
[2019-10-03] MEDS: MULTIVITAMINS,THERAGRAN 1 UDTAB TABLET PO SCH (08:15)
[2019-10-03] MEDS: FOLIC ACID 1 MG TABLET PO SCH (08:15)
--- NOTE | 2019-10-03 09:45 | NUR ---
RN NOTE- PT IN CHAIR IN DAYROOM. PT ANXIOUS AND CONFUSED. 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 THE STUDENTS ARE WAITING." DENIES SI HI AH VH. MED COMPLIANT THIS MORNING. PO INTAKE GOOD. DIRECTABLE AT PRESENT NEEDS FREQUENT REORIENTATION. WILL CONT TO MONITOR PT PER GPS PROTOCOL
[2019-10-03 16:08] VITALS: BP 108/69
[2019-10-03 19:59] VITALS: BP 119/80
[2019-10-03] MEDS: TEMAZEPAM 7.5 MG CAPSULE PO PRN (21:21)
[2019-10-04] MEDS: ARIPIPRAZOLE 5 MG TABLET PO SCH ×3 (07:47→21:08)
[2019-10-04 08:00] VITALS: BP 100/62
[2019-10-04] MEDS: FOLIC ACID 1 MG TABLET PO SCH (08:17)
[2019-10-04] MEDS: THIAMINE HCL 100 MG TABLET PO SCH (08:17)
[2019-10-04] MEDS: MULTIVITAMINS,THERAGRAN 1 UDTAB TABLET PO SCH (08:17)
[2019-10-04] MEDS: OXCARBAZEPINE 150 MG TABLET PO SCH ×3 (08:17→17:11)
--- NOTE | 2019-10-04 09:00 | NUR ---
RN NOTE- RECEIVED PT AFTER REPORT. PT ATTEMPTING TO GET OOB ON HER OWN. PLACED IN CHAIR. DIRECTABLE. CALM. DECREASED OPPOSITIONAL BEHAVIORS. DENIES SI HI AH VH. MED COMPLIANT THIS MORNING. PO INTAKE GOOD. NEEDS FREQUENT REORIENTATION. WILL CONT TO MONITOR PT PER GPS PROTOCOL
[2019-10-04 16:00] VITALS: BP 101/75
[2019-10-04 20:20] VITALS: BP 114/77
[2019-10-04] MEDS: TEMAZEPAM 7.5 MG CAPSULE PO PRN (22:41)
--- NOTE | 2019-10-04 22:49 | NUR ---
GPS RN NOTES : INSOMNIA UPON DOING ROUNDS. PT STILL WIDE AWAKE AND RESTLESS, GIVEN RESTORIL 7.5 MG. PT TOLERATED MEDICATION WELL. CONTINUE TO MONITOR PT.
[2019-10-05] MEDS: LORAZEPAM 1 MG TABLET PO PRN (00:11)
--- NOTE | 2019-10-05 00:12 | NUR ---
GPS RN NOTES: C/O OF FEELING ANXIOUS PT C/O OF FEELING ANXIOUS. PT STATED, " I THINK IM ANXIOUS." VITALS CHECKED WNL. OFFERED ATIVAN 2MG PO PRN ORDERED. PT AGREED AND TOLERATED MEDICATION WELL. CONTINUE TO MONITOR.
[2019-10-05] MEDS: ARIPIPRAZOLE 5 MG TABLET PO SCH ×2 (07:51→12:28)
[2019-10-05 08:00] VITALS: BP 122/75
[2019-10-05] MEDS: OXCARBAZEPINE 150 MG TABLET PO SCH ×2 (08:02→12:27)
[2019-10-05] MEDS: THIAMINE HCL 100 MG TABLET PO SCH (08:03)
[2019-10-05] MEDS: FOLIC ACID 1 MG TABLET PO SCH (08:03)
[2019-10-05] MEDS: MULTIVITAMINS,THERAGRAN 1 UDTAB TABLET PO SCH (08:03)
--- NOTE | 2019-10-05 09:00 | NUR ---
RN NOTE: RECEIVED PT LYING IN BED. NO ACUTE DISTRESS NOTED. VSS, AFEBRILE. PT A+OX1, ABLE TO MAKE BASIC NEEDS KNOWN. PT IS HYPERVERBAL, GRANDIOSE AND PARANOID AT TIMES. PT NEEDS FREQUENT REDIRECTION. PT NEEDS ASSISTANCE WITH ADL'S AND IS INCONTINENT. PT STABLE TO DISCHARGE THIS AFTERNOON TO [facility]. PT IS ABLE TO VERBALIZE UNDERSTANDING OF DISCHARGE. PT DENIES SI/HI/AH/VH AT PRESENT TIME. PT IS COMPLIANT WITH MEDICATION ADMINISTRATION THIS AM. WILL CONT TO MONITOR PT PER GPS PROTOCOL.
--- NOTE | 2019-10-05 10:05 | NUR ---
RN NOTE: REPORT CALLED TO DENEEN PHILLIPS AT [facility] [phone]
--- NOTE | 2019-10-05 13:25 | NUR ---
MANAGER ADMINISTRATIVE SERVICES NOTE: 68 YEAR OLD FEMALE DISCHARGED TO [facility] IN STABLE CONDITION. COMPLIANT WITH MEDICATIONS, COOPERATIVE WITH TREATMENT PLANS. PATIENT DENIES SI/HI AND INSTRUCTED TO GO TO THE CLOSEST ER IF DEVELOPING SI/HI. BEHAVIOR IMPROVED, PSYCHIATRIC TREATMENT PLANS MET, MEDICAL TREATMENT PLANS DEFERRED FOR CONTINUAL MONITORING. EDUCATED PT ABOUT AFTER CARE PLAN AND COPY PROVIDED. RETURNED PERSONAL BELONGINGS TO PATIENT. MEDICATIONS RECONCILED WITH KRYSTA CHASE AND DR. CAMARENA. REPORT GIVEN TO DENEEN PHILLIPS AT [facility] FOR CONTINUITY OF CARE. PT UNABLE TO SIGN DISCHARGE PAPERWORK. WOUND PICTURES TAKEN AND DOCUMENTED IN THE CARE. IDENTIFICATION BAND REMOVED. PT LEFT THE UNIT AT 13:25 VIA GURNEY WITH EMS PRESENT.
--- NOTE | 2019-10-05 15:01 | NUR ---
Discharge Note: Pt was discharged to [facility] ([facility]) [place] [address] [place] [address]; ([phone]). Pt was transported via [facility] at 1PM. Pts brother, Noel ([phone]), was informed of the discharge. Upon discharge, pt appeared to be in a euthymic mood and presented with an agitated affect. Pt stated that she did not have a good stay at the hospital. Pt denied both suicidal and homicidal ideation as well as auditory and visual hallucinations. Pt appeared to be alert and oriented x4. Pt will continue to be under the care of psychiatrist, Dr. Tg Roberson, located at [address], [place] [address]; and bobbin coil winder, Dr. Prasad Heller, located at [address] [place] [address]; .
== END 2019-10-05 13:30 | DRG 885 ==
LOC: GPS 19:25
PROVIDERS: ADMIT Psychiatry & Neurology Psychosomatic Medicine; ATTEND Nurse Practitioner Acute Care
DX: F31.9 Bipolar disorder, unspecified (principal); G93.40 Encephalopathy, unspecified; F29 Unspecified psychosis not due to a substance or known physiological condition; E78.5 Hyperlipidemia, unspecified; F10.10 Alcohol abuse, uncomplicated; F41.0 Panic disorder [episodic paroxysmal anxiety]; G31.84 Mild cognitive impairment of uncertain or unknown etiology; Z91.5 Personal history of self-harm; Z73.6 Limitation of activities due to disability
CPT/HCPCS: 36415; 80053-TC; 85025-TC; 87081-TC; 97110-TC; 97116-TC; 97530-TC